=== PATIENT | female | born 1995 | race Caucasian/White ===

== ENCOUNTER 2020-05-07 09:37 | Emergency (ER) | payer OTHER ==
[~2020-05-07] VITALS: Ht 165.1 cm; Wt 108.7 kg
[2020-05-07] MEDS ORDERED: MULTTAB20 PO (09:56)
[2020-05-07 11:51] LABS: BASO % 0.5 % (0.0-1.0); EOS # 0.1 10^3/uL (0.0-0.5); EOS % 0.8 % (0.0-3.0); HEMATOCRIT 44.3 % (36.0-47.0); HEMOGLOBIN 13.4 g/dl (12.0-15.5); LYMPH # 2.4 10^3/uL (1.5-5.0); LYMPH % 39.2 % (24.0-44.0); MEAN CORPUSCULAR HEMOGLOBIN 24.8 pg (27.0-33.0); MEAN CORPUSCULAR HGB CONC 30.2 g/dl (32.0-36.5); MONO # 0.6 10^3/uL (0.0-0.8); MONO % 9.5 % (0.0-5.0); NEUTROPHILS # 3.1 10^3/uL (1.5-8.5); NEUTROPHILS % 49.7 % (36.0-66.0); PLATELET COUNT, AUTOMATED 281 10^3/uL (150-450); WHITE BLOOD COUNT 6.2 10^3/uL (4.0-10.0)
--- NOTE | 2020-05-07 12:09 | REP ---
INDICATION: pelvic cramping, back pain. COMPARISON: None. TECHNIQUE: Transabdominal and transvaginal scanning performed. FINDINGS: Septated a uterus is seen with overall dimensions 9.6 x 5.0 x 5.7 cm. The endometrium is 8 mm in thickness on the right and left 9 mm in thickness on the left. No intrauterine gestational sac is seen. No free fluid is noted. Right ovary is dimensions are 4.8 x 2.6 x 3.1 cm. Doppler flow is present in the right ovary, resistive index 0.61. There is a 2.3 x 1.5 x 1.8 cm solid appearing hypoechoic structure in the right ovary which could be a corpus luteum. The left ovary has dimensions of 3.2 x 1.7 x 1.6 cm. Doppler flow is present in the left ovary, resistive index 0.68. And there is a of 1.5 cm follicle cyst in the left ovary. IMPRESSION: Empty septate uterus. No intrauterine gestational sac. No free fluid or significant adnexal mass seen. There is a 2.3 cm hypoechoic air solid appearing area in the right ovary which could be a corpus luteum. Clinical and possibly sonographic follow-up is advised. Sonographic findings are nonspecific. <Electronically signed by Vikas Torres > 05/07/20 [id number]
[2020-05-07 12:14] LABS: ALBUMIN 3.5 GM/DL (3.2-5.2); ALT/SGPT 21 U/L (12-78); BILIRUBIN,DIRECT < 0.1 MG/DL (0.0-0.2); BILIRUBIN,TOTAL 0.2 MG/DL (0.2-1.0); BLOOD UREA NITROGEN 10 MG/DL (7-18); CALCIUM LEVEL 9.4 MG/DL (8.5-10.1); CARBON DIOXIDE LEVEL 28 MEQ/L (21-32); CHLORIDE LEVEL 106 MEQ/L (98-107); CREATININE FOR GFR 0.66 MG/DL (0.55-1.30); GLOMERULAR FILTRATION RATE > 60.0 (>60); GLUCOSE, FASTING 94 MG/DL (70-100); HCG, SERUM QUANTITATIVE 102 MIU/ML; LIPASE 141 U/L (73-393); POTASSIUM SERUM 4.5 MEQ/L (3.5-5.1); SODIUM LEVEL 137 MEQ/L (136-145); TOTAL PROTEIN 7.3 GM/DL (6.4-8.2)
[2020-05-07 14:22] LABS: CHLAMYDIA DNA AMPLIFICATION NEGATIVE (NEGATIVE); GC DNA AMPLIFICATION NEGATIVE (NEGATIVE)
[2020-05-07 15:04] VITALS: BP 132/88
== END 2020-05-07 15:06 | disposition home or self-care (01) ==
LOC: M ED 09:37
DX: O26.891 Other specified pregnancy related conditions, first trimester (principal); M54.5 Low back pain; R10.2 Pelvic and perineal pain; Z3A.00 Weeks of gestation of pregnancy not specified

== ENCOUNTER → 2020-05-09 | Outpatient (CLI) | payer OTHER ==
[~2020-05-09] MED LIST: MULTTAB20 PO
== END ==
LOC: M LAB 11:34
PROVIDERS: ATTEND Physician Assistant
DX: Z34.80 Encounter for supervision of other normal pregnancy, unspecified trimester (principal); Z3A.00 Weeks of gestation of pregnancy not specified

== ENCOUNTER → 2020-06-08 | Outpatient (REF) | payer OTHER ==
[2020-06-08 13:56] LABS: HEMATOCRIT 45.3 % (36.0-47.0); MEAN CORPUSCULAR HEMOGLOBIN 25.5 pg (27.0-33.0); MEAN CORPUSCULAR HGB CONC 30.9 g/dl (32.0-36.5); MEAN CORPUSCULAR VOLUME 82.5 fl (80.0-96.0); PLATELET COUNT, AUTOMATED 312 10^3/uL (150-450); RED BLOOD COUNT 5.49 10^6/uL (4.00-5.40); WHITE BLOOD COUNT 5.6 10^3/uL (4.0-10.0)
[2020-06-08 14:51] LABS: HEPATITIS C VIRUS ABY INDEX < 0.0 INDEX (<0.8); HIV 1&2 SCREEN CENTAUR NEGATIVE (NEGATIVE)
== END ==
LOC: M PLALAB 11:08
PROVIDERS: ATTEND Advanced Practice Midwife
DX: Z34.81 Encounter for supervision of other normal pregnancy, first trimester (principal)

== ENCOUNTER → 2020-08-24 | Outpatient (CLI) | payer OTHER ==
--- NOTE | 2020-08-25 10:37 | REP ---
INDICATION: ANATOMY. Supervision of . "Established REFUGIO" obtained from [employer]: 20 weeks 3 days, REFUGIO January 08 2021 COMPARISON: None. TECHNIQUE: Transabdominal obstetric sonography. FINDINGS: Scanning through the gravid uterus demonstrates a viable single intrauterine gestation in cephalic lie. motion is observed and heart rate is recorded at 144 beats per minute. A posterior placenta is seen, grade 1, without evidence of placenta previa. Closed cervical length is measured at 4.2 cm transabdominally. No extrauterine abnormality is observed. Amniotic fluid is subjectively normal. The following anatomic structures are less than optimally seen due to position: Right and left kidney, spine. A 2 vessel umbilical cord is seen. The following anatomic structures are identified felt to be unremarkable: cranium and intracranial contents, face and profile nose and lips, four-chamber heart with left and right ventricular outflow tract views, diaphragm, left-sided stomach, abdominal wall cord insertion, urinary bladder, right and left upper and lower extremities.. Biometry chart: BPD 4.3 cm, 18 weeks 6 days Head circumference 16.5 cm, 19 weeks 2 days Abdominal circumference 11.0 cm, 18 weeks 3 days Femur length 3.0 cm, 19 weeks 2 days Humeral length 3.0 cm, 19 weeks 6 days HC AC ratio 1.27 (1.06-1.24) Cephalic index normal 0.70 Estimated weight 263 g, 0 lb 9 oz, less than 3rd percentile for 20 weeks 3 days IMPRESSION: Viable single intrauterine gestation at 19 weeks 1 days by today's composite sonographic criteria. REFUGIO by today's sonography January 17, 2021.. No complication identified. Expected gestational age estimate based on data from [employer], 20 weeks 3 days, REFUGIO by priors January 08, 2021. Two vessel umbilical cord. kidneys and spine less than optimally seen. <Electronically signed by Vikas Torres > 08/25/20 [id number]
== END ==
LOC: M WHC 12:38
PROVIDERS: ATTEND Advanced Practice Midwife
DX: Z34.92 Encounter for supervision of normal pregnancy, unspecified, second trimester (principal); Z3A.19 19 weeks gestation of pregnancy

== ENCOUNTER → 2020-09-11 | Outpatient (CLI) | payer OTHER ==
--- NOTE | 2020-09-11 18:50 | REP ---
INDICATION: 20 WEEKS GESTATION OF COMPARISON: 08/24/2020 TECHNIQUE: Transabdominal obstetrical ultrasound with color Doppler evaluation. FINDINGS: Examination demonstrates a single live intrauterine in breech presentation. motion is identified by technologist. Placenta is noted posterior and grade 1 without evidence for placenta previa or abruption. Amniotic fluid volume is normal. Cervix measures 4.5 cm in length and appears closed.. Gestational age by LMP 23 weeks 0 days with REFUGIO 01/08/2021. Gestational age by current measurements 21 weeks 6 days with REFUGIO 01/16/2021. Gestational age by 1st ultrasound 21 weeks 5 days with REFUGIO 01/17/2021. FHR equals 148 beats per minute. Estimated weight 463 grams (31stpercentile based on age by LMP; 57th percentile based on age by 1st ultrasound). Anatomical assessment demonstrates normal structures including cranium, choroid plexus, cavum, cerebellum/posterior fossa, facial features, lungs, four-chamber heart/ventricular outflow tracts, diaphragm, stomach, cord insertion/three-vessel cord, kidneys/bladder, spine, and bilateral lower extremities and right upper extremity. IMPRESSION: Single live intrauterine in breech presentation demonstrating appropriate estimated weight. Anatomical assessment is essentially complete and normal. Mild bilateral renal pelviectasis is within normal range for age. <Electronically signed by Chilo Brito > 09/11/20 [id number]
== END ==
LOC: M RAD 14:27
PROVIDERS: ATTEND Advanced Practice Midwife
DX: Z36.89 Encounter for other specified antenatal screening (principal); Z3A.23 23 weeks gestation of pregnancy; O32.1XX0 Maternal care for breech presentation, not applicable or unspecified

== ENCOUNTER → 2020-10-22 | Outpatient (REF) | payer OTHER ==
[2020-10-22 13:44] LABS: HEMATOCRIT 40.7 % (36.0-47.0); HEMOGLOBIN 12.7 g/dl (12.0-15.5); MEAN CORPUSCULAR HEMOGLOBIN 26.6 pg (27.0-33.0); MEAN CORPUSCULAR HGB CONC 31.2 g/dl (32.0-36.5); MEAN CORPUSCULAR VOLUME 85.3 fl (80.0-96.0); PLATELET COUNT, AUTOMATED 280 10^3/uL (150-450); RED BLOOD COUNT 4.77 10^6/uL (4.00-5.40); WHITE BLOOD COUNT 8.2 10^3/uL (4.0-10.0)
== END ==
LOC: M PLALAB 09:45
PROVIDERS: ATTEND Advanced Practice Midwife
DX: O99.212 Obesity complicating pregnancy, second trimester (principal)

== ENCOUNTER 2020-10-31 19:13 | Outpatient (CLI) | payer OTHER ==
[~2020-10-31] VITALS: Ht 167.6 cm; Wt 119.9 kg
[2020-10-31 19:30] VITALS: BP 124/64
[2020-10-31] MEDS ORDERED: ACETAMINOPHEN 500 MG TAB PO ONE (20:55)
[2020-10-31 21:20] LABS: APPEARANCE, URINE CLOUDY (CLEAR); BACTERIA, URINE AUTO 3+ (NEGATIVE); BILIRUBIN, URINE AUTO NEGATIVE (NEGATIVE); BLOOD, URINE BLOOD NEGATIVE (NEGATIVE); COLOR, URINE YELLOW (YELLOW); GLUCOSE, URINE (UA) AUTO NEGATIVE (NEGATIVE); KETONE, URINE AUTO NEGATIVE (NEGATIVE); LEUKOCYTE ESTERASE, URINE AUTO NEGATIVE (NEGATIVE); MUCUS, URINE SMALL (NEGATIVE); NITRITE, URINE AUTO NEGATIVE (NEGATIVE); PROTEIN, URINE AUTO NEGATIVE (NEGATIVE); RBC, URINE AUTO 2 /HPF (0-3); SPECIFIC GRAVITY URINE AUTO 1.016 (1.002-1.035); SQUAMOUS EPITHELIAL CELL UR AU 16 /HPF (0-6); UROBILINOGEN, URINE AUTO 0.2 mg/dL (0.0-2.0); WBC, URINE AUTO 3 /HPF (0-3)
--- NOTE | 2020-10-31 21:27 | IPNPDOC ---
Obstetrical Progress Note Date of Service October 31, 2020 Subjective 25-year-old at 30+1 weeks gestation. She presents with ongoing lower back pain. Denies any unilateral flank pain. She has only treated with Tylenol 1 g by mouth yesterday. Denies any vaginal bleeding, loss of fluid or uterine contractions. She reports regular movement. course essentially uncomplicated thus far. PMH/surgical history: Appendectomy O: Normotensive. Normal heart rate. Afebrile Heart regular rate and rhythm Lungs clear to auscultation bilaterally Soft, nontender uterine fundus, nontender, fundal height consistent with gestational age EFM: Category 1/reactive for gestational age [place]: No contractions Urinalysis negative for evidence of UTI A/P: 25-year-old G3, P1, at 30+1 weeks gestation with lower back pain. Reassuring maternal and status. No evidence of any infection or labor. Routine third trimester precautions were reviewed. She is to follow-up in the office as scheduled. Mara Rose DO Objective Vital Signs Date Time Temp Pulse Resp B/P (MAP) Pulse Ox O2 Delivery O2 Flow Rate FiO2 10/31/20 19:30 98.6 112 18 124/64 (84) Room Air JUNE ROSE DO October 31, 2020 21:27
== END 2020-10-31 21:45 | disposition home or self-care (01) ==
LOC: M LDO 19:13
PROVIDERS: ATTEND Obstetrics & Gynecology
DX: O26.893 Other specified pregnancy related conditions, third trimester (principal); M54.5 Low back pain; Z3A.30 30 weeks gestation of pregnancy
CPT/HCPCS: 59025; 81001; G0378; G0463

== ENCOUNTER 2020-12-11 19:43 | Outpatient (CLI) | payer OTHER ==
[~2020-12-11] VITALS: Ht 165.1 cm; Wt 121.6 kg
[~2020-12-11 19:43] MED LIST changes: -TUMS500C PO
[2020-12-11 20:38] VITALS: BP 110/60
[2020-12-11] MEDS ORDERED: TUMS500C PO (20:40)
--- NOTE | 2020-12-11 20:45 | IPNPDOC ---
Text Note Date of Service The patient was seen on 12/11/20. NOTE Outpatient 25yo REFUGIO 01/08/2021. Presents @ 36w0d with complaints of leakage of fluid. Denies bleeding, regular UC. Reports good movement. VSS, afebrile, normotensive Cat I tracing No UC Spec exam - neg pool, neg valsalva, neg nitrazine, neg fern SVE 150/-2, soft, midline Discharged home. Routine precautions. Keep next appt VS,Fishbone, I+O VS, Fishbone, I+O Vital Signs Date Time Temp Pulse Resp B/P (MAP) Pulse Ox O2 Delivery O2 Flow Rate FiO2 12/11/20 20:38 97.4 91 110/60 (77) La Ochoa CNM Dec 11, 2020 20:45
== END 2020-12-11 21:35 | disposition home or self-care (01) ==
LOC: M LDO 19:43
PROVIDERS: ATTEND Advanced Practice Midwife
DX: O47.03 False labor before 37 completed weeks of gestation, third trimester (principal); Z3A.36 36 weeks gestation of pregnancy
CPT/HCPCS: 59025; 81001; 87086; G0378; G0463

== ENCOUNTER → 2020-12-11 | Outpatient (REF) | payer OTHER ==
[~2020-12-11] MED LIST changes: +TUMS500C PO
== END ==
LOC: M SFHCWAGY 13:05
PROVIDERS: ATTEND Advanced Practice Midwife
DX: O99.213 Obesity complicating pregnancy, third trimester (principal)

== ENCOUNTER 2020-12-26 23:13 | Outpatient (CLI) | payer OTHER ==
[~2020-12-26] VITALS: Ht 167.6 cm; Wt 122.6 kg
[~2020-12-26 23:13] MED LIST changes: +TUMS500C PO
[2020-12-26 23:32] VITALS: BP 123/68
[2020-12-27] MEDS ORDERED: ACETAMINOPHEN 500 MG TAB PO ONE (00:10)
--- NOTE | 2020-12-27 00:33 | IPNPDOC ---
Text Note Date of Service The patient was seen on 12/27/20. NOTE S: 25 yo female at 38 2/7 weeks by LMP c/w 6 week ultrasound presents with decreased movements for the past two hours. She was able to count 4 movements in the hour before she came in. She has some intermittent back discomfort. no bleeding. O: AVSS NAD Abd: NT, gravid FHT: cat. I toco: irregular, mild Sve: 3 cm/50%/-2 moderate, posterior, vtx A/P 25 yo female at 38 2/7 weeks with reassuring testing discharge home labor precautions discussed kick counts f-u office as scheduled VS,Fishbone, I+O VS, Fishbone, I+O Vital Signs Date Time Temp Pulse Resp B/P (MAP) Pulse Ox O2 Delivery O2 Flow Rate FiO2 12/26/20 23:32 97.8 110 16 123/68 (86) ZANDRA ORELLANA MD Dec 27, 2020 00:33
== END 2020-12-27 01:40 | disposition home or self-care (01) ==
LOC: M LDO 23:13
PROVIDERS: ATTEND Specialist
DX: O36.8130 Decreased fetal movements, third trimester, not applicable or unspecified (principal); Z3A.38 38 weeks gestation of pregnancy; O26.893 Other specified pregnancy related conditions, third trimester; M54.5 Low back pain; Z79.899 Other long term (current) drug therapy
CPT/HCPCS: 59025; G0378; G0463

== ENCOUNTER → 2021-01-01 | Outpatient (CLI) | payer OTHER ==
[~2021-01-01] MED LIST changes: +ACET-683 PO; +ACET-907 PO; +AMOX500C PO; +IBUP80TA PO
== END ==
LOC: M LABSMTC 12:44
PROVIDERS: ATTEND Specialist
DX: Z20.828 Contact with and (suspected) exposure to other viral communicable diseases (principal); Z11.59 Encounter for screening for other viral diseases; Z3A.39 39 weeks gestation of pregnancy

== ENCOUNTER 2021-01-02 15:42 | Inpatient (IN) | payer OTHER ==
[2021-01-02] VITALS (7 sets, daily range): BP systolic 98–123; BP diastolic 50–71
[~2021-01-02] VITALS: Ht 167.6 cm; Wt 122.4 kg
[~2021-01-02 15:42] MED LIST changes: -ACET-683 PO; -ACET-907 PO; -AMOX500C PO; -IBUP80TA PO
[2021-01-02] MEDS ORDERED: ACET-907 PO (16:13)
[2021-01-02] MEDS ORDERED: OXYTOCIN DRIP 30 UNITS in IV 1 EA IV PRN (16:35)
[2021-01-02] MEDS ORDERED: PENICILLIN G POTASSIUM IV 5 MU in D5W MINI-BAG PLUS 100 ML IV STA (16:36)
[2021-01-02 17:15] LABS: HEMATOCRIT 36.1 % (36.0-47.0); HEMOGLOBIN 11.5 g/dl (12.0-15.5); MEAN CORPUSCULAR HEMOGLOBIN 25.8 pg (27.0-33.0); MEAN CORPUSCULAR HGB CONC 31.9 g/dl (32.0-36.5); MEAN CORPUSCULAR VOLUME 81.1 fl (80.0-96.0); PLATELET COUNT, AUTOMATED 251 10^3/uL (150-450); RED BLOOD COUNT 4.45 10^6/uL (4.00-5.40); WHITE BLOOD COUNT 8.1 10^3/uL (4.0-10.0)
--- NOTE | 2021-01-02 17:29 | HPEPDOC ---
Obstetrical History & Physical General Date of Admission Jan 02, 2021 at 15:42 History of Present Illness 25 yo female at 39 1/7 weeks by LMP c/w 6 week ultrasound (EDC=01/08/2021) presents for labor induction. She denies contractions. no bleeding. Information Provided By: Patient Age: 25 : 3 Term: 1 Pre-term: 0 Abortions: 1 Livin Care Care: Good Care Dating Final EDC: Jan 08, 2021 Final EDC by: LMP, 1st trimester (US) Antepartum Course Diagnos(e)s IUGR on early ultrasound; resolved by later ultrasound Past Medical History Past Obstetrical History : Past Obstetrical History: Multigravida COMPENSATION DIRECTOR History: No pertinent history Past Medical History Medical History none OB hx: TSVD x 1 Surgical History: Appendectomy Family History Significant Family History: No pertinent family hx Social History Marital Status: Family situation: Spouse/partner home Psychosocial History: No pertinent psych hx * Smoker: non-smoker Allergies Coded Allergies: No Known Allergies (Verified Allergy, Unknown, 05/07/20) Medications Scheduled Calcium Carbonate (Tums) 200 Mg Tab.chew, 500 MG PO PRN No122/Iron/Folic Acid ( Multi Tablet) 1 Each Tablet, 1 TAB PO DAILY Scheduled PRN Acetaminophen (Tylenol) 325 Mg Tablet, 1,000 MG PO Q6HP PRN for PAIN LEVEL 6-10 Physical Examination Physical Examination GENERAL: Alert and oriented times three. BREAST: . ABDOMEN: Gravid and non-tender to touch. FETUS: Is vertex (VTX) by sterile vaginal examination (SVE), fetus is vertex (VTX) by [place]. HEART RATE: Regular rate and rhythm. LUNGS: Clear to auscultation (CTA). EXTREMITIES: No edema. No clonus. Deep tendon reflexes (DTRs) + . Vital Signs/I&O Vital Signs Date Time Temp Pulse Resp B/P (MAP) Pulse Ox O2 Delivery O2 Flow Rate FiO2 01/02/21 16:04 98.2 108 18 110/55 (73) 97 Room Air Laboratory Data 24H LABS Laboratory Tests 2 01/02/21 15:48: Serology Scanned Report Hepatitis B Testing 01/02/21 17:03: Nucleated Red Blood Cells % (auto) 0.0 CBC/BMP Laboratory Tests 01/02/21 17:03 Pertinent Laboratoy Data Blood Type: A+ Group B Streptococcus: Positive Vaginal Examination Dilation: 4 cm Effacement: 70% Station: -2 Cervical Consistency: Medium Cervical Position: Posterior Presentation: Cephalic presentation Assessment Variability: Moderate Accelerations: Positive Decelerations: None Tocometer Contractions: No Assessment/Plan Assessment Pt is a 25-year-old (G)3 para (P)1-0-1-1 at 39+1 weeks by LMP c/w 6- week ultrasound presents for labor induction. Plan Admit and orient. Cushion Installer and consent. Diet: reg. Group B Streptococcus (GBS) positive. Anticipate normal spontaneous delivery (). C-S as appropriate. ZANDRA ORELLANA MD Jan 02, 2021 17:29
[2021-01-02] MEDS: miSOPROStol 50MCG 1/2 TABLET SL SCH ×2 (17:38→21:46)
[2021-01-02] MEDS: PENICILLIN G POTASSIUM IV 2.5 MU in IV 1 EA IV SCH (21:46)
[2021-01-02] MEDS ORDERED: OXYTOCIN DRIP 30 UNITS in IV 1 EA IV SCH (22:55)
[2021-01-03] VITALS (25 sets, daily range): BP systolic 96–133; BP diastolic 54–77
[2021-01-03] MEDS: PENICILLIN G POTASSIUM IV 2.5 MU in IV 1 EA IV SCH ×2 (02:02→06:02)
[2021-01-03] MEDS: LR 1,000 ML IV SCH ×2 (02:55→06:33)
[2021-01-03] MEDS ORDERED: FENTANYL 2MCG/ML ROPIVACAINE 0.2% IN 0.9% NACL 100ML IVBAG As Ordered ONE (08:08)
[2021-01-03] MEDS ORDERED: NALOXONE INJ 0.4MG/1ML VIAL (J2310 PER 1MG) IV PRN (08:45)
[2021-01-03] MEDS ORDERED: ePHEDrine SULFATE 25 MG/5 ML(5MG/ML) SYRINGE IV PRN (08:45)
[2021-01-03] MEDS ORDERED: REFRIGERATOR IV KEYS XX PRN (08:45)
[2021-01-03] MEDS ORDERED: LACTATED RINGER'S 1000 ML IV PRN (08:45)
[2021-01-03] MEDS ORDERED: ONDANSETRON 4MG/2ML VIAL IV PRN (08:45)
[2021-01-03] MEDS ORDERED: EPIDURAL COMMENT XX SCH (08:45)
[2021-01-03] MEDS ORDERED: FENTANYL/ROPIVACAINE/NACL BAG 100 ML EPIDURAL SCH (08:45)
[2021-01-03] MEDS ORDERED: EPIDURAL/PCA KEYS XX PRN (08:45)
[2021-01-03] MEDS ORDERED: diphenhydrAMINE 50MG/ML VIAL (J1200) IV PRN (08:45)
[2021-01-03] MEDS ORDERED: DOCUSATE SODIUM 100MG CAPSULE PO PRN (09:20)
[2021-01-03] MEDS ORDERED: METHYLERGONOVINE MALEATE 0.2 MG TAB PO PRN (09:20)
[2021-01-03] MEDS ORDERED: RHOGAM 300 MCG (1500 IU) INJ (J2790) IM SCH (09:20)
[2021-01-03] MEDS ORDERED: IBUPROFEN 600MG TAB PO PRN (09:20)
[2021-01-03] MEDS ORDERED: MEASLES,MUMPS,RUBELLA VACCINE INJ (MMR-II) (90707) SC SCH (09:20)
[2021-01-03] MEDS ORDERED: ACETAMINOPHEN TAB 650MG DOSE (2X325MG) PO PRN (09:20)
[2021-01-03] MEDS ORDERED: IBUPROFEN 800 MG TAB PO PRN (09:20)
[2021-01-03] MEDS: PRENATAL VITAMINS CHEWABLE TABLET PO SCH (10:22)
--- NOTE | 2021-01-03 10:33 | DNPDOC ---
[facility] Delivery Note Delivery Note DATE OF DELIVERY: 2020 PREDELIVERY DIAGNOSIS: 39-1/7 weeks' gestation, induction. POST DELIVERY DIAGNOSIS: Delivered. PROCEDURE: Spontaneous vaginal delivery. COATING INSPECTOR: Dr. Zandra Orellana MD ANESTHESIA: epidural. ESTIMATED BLOOD LOSS: 300 mL. FINDINGS: 7 pound 13 ounce female infant, Score 8/9. DELIVERY SUMMARY: Patient is a 25-year-old 3 now para 1 who was admitted for labor induction. She received 2 doses of misoprostol. She received IV Pitocin. She had spontaneous rupture of membranes. After 5 minutes second stage of labor she had spontaneous vaginal delivery of a 7 pound 13 ounce female infant. Shoulders delivered with ease. A right compound arm was noted at the time of delivery. The was handed to the mother and cried immediately. Cord is doubly clamped and cut. The placenta delivered spontaneously and appeared to be intact. The patient received IV Pitocin after delivery of placenta. No vaginal lacerations were present. Sponge counts were correct. ZANDRA ORELLANA MD Jan 03, 2021 10:33
[2021-01-03] MEDS: ACETAMINOPHEN 500 MG TAB PO PRN (16:20)
[2021-01-04] MEDS: ACETAMINOPHEN 500 MG TAB PO PRN ×2 (00:12→09:08)
[2021-01-04 06:23] VITALS: BP 117/78
[2021-01-04] MEDS: PRENATAL VITAMINS CHEWABLE TABLET PO SCH (07:52)
[2021-01-04] MEDS ORDERED: IBUP80TA PO (10:56)
[2021-01-04] MEDS ORDERED: ACET-683 PO (10:56)
[2021-01-05] MEDS ORDERED: AMOX500C PO (22:07)
== END 2021-01-04 12:28 | disposition home or self-care (01) | DRG 807 ==
LOC: M LDI 15:42 → M OBS 01-03 11:38
PROVIDERS: ADMIT Specialist; ATTEND Specialist
PROC: 3E033VJ Introduction of Other Hormone into Peripheral Vein, Percutaneous Approach (ICD-10-PCS; 2021-01-02)
PROC: 3E0DXGC Introduction of Other Therapeutic Substance into Mouth and Pharynx, External Approach (ICD-10-PCS; 2021-01-02)
PROC: 10E0XZZ Delivery of Products of Conception, External Approach (ICD-10-PCS; principal; 2021-01-03)
DX: O32.6XX0 Maternal care for compound presentation, not applicable or unspecified (principal); Z37.0 Single live birth; Z3A.39 39 weeks gestation of pregnancy

== ENCOUNTER 2021-01-05 18:19 | Emergency (ER) | payer OTHER ==
[~2021-01-05] VITALS: Ht 167.6 cm; Wt 109.1 kg
[~2021-01-05 18:19] MED LIST changes: +ACET-683 PO; +ACET-907 PO; +IBUP80TA PO
[2021-01-05] MEDS ORDERED: NS 1,000 ML IV ONE ×2 (18:55→21:35)
[2021-01-05] MEDS ORDERED: ACETAMINOPHEN 325 MG TAB PO ONE (18:55)
[2021-01-05 19:30] LABS: BASO % 0.3 % (0.0-1.0); EOS # 0.1 10^3/uL (0.0-0.5); EOS % 0.8 % (0.0-3.0); HEMATOCRIT 37.3 % (36.0-47.0); HEMOGLOBIN 11.7 g/dl (12.0-15.5); LYMPH # 0.9 10^3/uL (1.5-5.0); LYMPH % 12.2 % (24.0-44.0); MEAN CORPUSCULAR HEMOGLOBIN 25.5 pg (27.0-33.0); MEAN CORPUSCULAR HGB CONC 31.4 g/dl (32.0-36.5); MEAN CORPUSCULAR VOLUME 81.4 fl (80.0-96.0); MONO # 0.4 10^3/uL (0.0-0.8); MONO % 5.9 % (2.0-8.0); PLATELET COUNT, AUTOMATED 259 10^3/uL (150-450); RED BLOOD COUNT 4.58 10^6/uL (4.00-5.40); WHITE BLOOD COUNT 7.5 10^3/uL (4.0-10.0)
[2021-01-05 19:56] LABS: ALBUMIN 2.7 GM/DL (3.2-5.2); ALT/SGPT 20 U/L (12-78); BILIRUBIN,TOTAL 0.1 MG/DL (0.2-1.0); BLOOD UREA NITROGEN 7 MG/DL (7-18); CALCIUM LEVEL 8.6 MG/DL (8.5-10.1); CARBON DIOXIDE LEVEL 27 MEQ/L (21-32); CHLORIDE LEVEL 104 MEQ/L (98-107); CREATININE FOR GFR 0.63 MG/DL (0.55-1.30); GLOMERULAR FILTRATION RATE > 60.0 (>60); GLUCOSE, FASTING 86 MG/DL (70-100); POTASSIUM SERUM 3.7 MEQ/L (3.5-5.1); SODIUM LEVEL 137 MEQ/L (136-145); TOTAL PROTEIN 6.4 GM/DL (6.4-8.2)
[2021-01-05 20:14] LABS: RSV AMPLIFICATION NEGATIVE (NEGATIVE)
[2021-01-05] MEDS ORDERED: AMOXICILLIN 500 MG CAP PO ONE (22:05)
[2021-01-05] MEDS ORDERED: AMOX500C PO (22:07)
[2021-01-05 22:55] VITALS: BP 123/68
== END 2021-01-05 22:57 | disposition home or self-care (01) ==
LOC: M ED 18:19
DX: N39.0 Urinary tract infection, site not specified (principal); I10 Essential (primary) hypertension

== ENCOUNTER → 2021-05-06 | Outpatient (REF) | payer OTHER ==
[~2021-05-06] MED LIST changes: +AMOX500C PO
== END ==
LOC: M LAB REF 17:14
PROVIDERS: ATTEND Physician Assistant
DX: R30.0 Dysuria (principal)

== ENCOUNTER → 2021-05-14 | Outpatient (CLI) | payer OTHER ==
--- NOTE | 2021-05-14 11:23 | REPVR ---
PROCEDURE INFORMATION: Exam: MR Lumbar Spine Without Contrast Exam date and time: 05/14/2021 9:34 AM Age: 26 years old Clinical indication: Low back pain; Additional info: Low back pain x2 mos TECHNIQUE: Imaging protocol: Multiplanar magnetic resonance images of the lumbar spine without intravenous contrast. COMPARISON: No relevant prior studies available. FINDINGS: Vertebrae: Vertebral body height and alignment are normal. There is no disc desiccation. Vertebral body marrow signal is unremarkable.} Spinal cord: Conus terminates at T12-L1 and appears normal in signal intensity without intrinsic or extrinsic lesion. There is a small filum lipoma extending from inferior L2 level distally. L1-L2: There is no significant posterior disc bulge or protrusion. Mild thickening of ligamentum flavum and facet degenerative change. There is no significant spinal stenosis or neural foraminal narrowing. L2-L3: There is no significant posterior disc bulge or protrusion. Mild thickening of ligamentum flavum and facet degenerative change. There is no significant spinal stenosis or neural foraminal narrowing. L3-L4: There is mild disc bulge without protrusion. Mild thickening of ligamentum flavum and facet degenerative change. There is no significant spinal stenosis or neural foraminal narrowing. L4-L5: There is moderate generalized disc bulge. There is central protrusion lateralizing to right and extending to the most medial of the neural foramen. This results in focal moderate narrowing right subarticular recess superiorly and correlate for L5 radiculopathy. There is mild medial right neural foraminal narrowing without evidence of nerve root impingement. There is thickening of ligamentum flavum and facet degenerative change. There is mild spinal stenosis. There is also milder narrowing of superior aspect left L5 subarticular. There is no left neural foraminal narrowing. L5-S1: There is mild disc bulge without focal protrusion. Thickening of ligamentum flavum and facet degenerative change. There is no significant spinal stenosis or neural foraminal narrowing. Soft tissues: Unremarkable. IMPRESSION: Degenerative changes as described. L4-L5 shows central and right subarticular recess protrusion narrowing right subarticular recess as described. Electronically signed by: Alejandra Sandoval On 05/14/2021 11:23:08 AM
== END ==
LOC: M PLARAD 08:08
PROVIDERS: ATTEND Physician Assistant
DX: M54.50 Low back pain, unspecified (principal)

== ENCOUNTER → 2021-10-15 | Outpatient (REF) | payer OTHER ==
[2021-10-15 15:11] LABS: GC DNA AMPLIFICATION NEGATIVE (NEGATIVE)
== END ==
LOC: M LAB REF 13:02
PROVIDERS: ATTEND Physician Assistant
DX: N76.0 Acute vaginitis (principal)

== ENCOUNTER → 2021-11-04 | Outpatient (CLI) | payer OTHER ==
[2021-11-04 13:43] LABS: BASO % 0.7 % (0.0-1.0); EOS % 0.7 % (0.0-3.0); HEMATOCRIT 47.4 % (36.0-47.0); HEMOGLOBIN 14.6 g/dl (12.0-15.5); LYMPH # 2.1 10^3/uL (1.5-5.0); MEAN CORPUSCULAR HGB CONC 30.8 g/dl (32.0-36.5); MEAN CORPUSCULAR VOLUME 81.3 fl (80.0-96.0); MONO # 0.5 10^3/uL (0.0-0.8); NEUTROPHILS # 2.6 10^3/uL (1.5-8.5); NEUTROPHILS % 49.4 % (36.0-66.0); PLATELET COUNT, AUTOMATED 286 10^3/uL (150-450); RED BLOOD COUNT 5.83 10^6/uL (4.00-5.40); WHITE BLOOD COUNT 5.4 10^3/uL (4.0-10.0)
[2021-11-04 14:27] LABS: ALT/SGPT 22 U/L (12-78); BILIRUBIN,TOTAL 0.2 MG/DL (0.2-1.0); BLOOD UREA NITROGEN 14 MG/DL (7-18); CALCIUM LEVEL 10.1 MG/DL (8.5-10.1); CARBON DIOXIDE LEVEL 27 MEQ/L (21-32); CHLORIDE LEVEL 105 MEQ/L (98-107); CHOLESTEROL LEVEL 206 MG/DL (<200); CHOLESTEROL RISK RATIO 4.291 (<5); CREATININE FOR GFR 0.66 MG/DL (0.55-1.30); GLOMERULAR FILTRATION RATE > 60.0 (>60); GLUCOSE, FASTING 97 MG/DL (70-100); HDL CHOLESTEROL 48 MG/DL (>40); LDL CHOLESTEROL 138 MG/DL (<100); NON-HDL-C 158 MG/DL; POTASSIUM SERUM 4.4 MEQ/L (3.5-5.1); SODIUM LEVEL 138 MEQ/L (136-145); TOTAL PROTEIN 7.9 GM/DL (6.4-8.2); TRIGLYCERIDES LEVEL 98 MG/DL (<150)
[2021-11-04 16:18] LABS: HEMOGLOBIN A1c 5.4 %
[2021-11-05 17:08] LABS: HEPATITIS C QUANTITATION <15 IU/mL (.); HIV-1 RNA PCR QUANT 2 LC550285 <20 copies/mL (.)
== END ==
LOC: M PLALAB 11:35
PROVIDERS: ATTEND Physician Assistant
DX: N76.0 Acute vaginitis (principal); Z13.220 Encounter for screening for lipoid disorders; Z13.29 Encounter for screening for other suspected endocrine disorder; Z79.899 Other long term (current) drug therapy

== ENCOUNTER → 2021-12-03 | Outpatient (CLI) | payer OTHER ==
[~2021-12-03] MED LIST changes: +AMPH1TAB2 PO; +HEAL1TAB6 PO; +PHEN-239 PO
== END ==
LOC: M LABSMTC 09:45
PROVIDERS: ATTEND Anesthesiology
DX: Z01.812 Encounter for preprocedural laboratory examination (principal); Z20.822 Contact with and (suspected) exposure to COVID-19